=== PATIENT | male | born 1950 | race Caucasian/White ===

== ENCOUNTER 2023-01-24 18:28 | Emergency (ER) | payer SELFPAY ==
--- OUTSIDE RECORDS SUMMARY | 2023-01-24 18:31 | XMS REPORT | Continuity of Care Document ---
:1950 Author Organization [facility] t Address [address] [facility] [address] [place] [id number] Care Team Providers Name Role Phone NO, PCP Primary Care Physician Unavailable NINOSKA ROSE Attending Clinician Unavailable SUNIL CHANDRA Attending Clinician Unavailable May Patino DO Attending Clinician [phone] BETTE KELLY - Attending Clinician Unavailable NINOSKA ROSE Admitting Clinician Unavailable SUNIL CHANDRA Admitting Clinician Unavailable DO MAY PATINO Admitting Clinician Unavailable BETTE KELLY - Admitting Clinician Unavailable Payers Payer Name Policy Type Policy Number Effective Date Expiration Date S valentina DCB [facility] [id number] 2023 COMMITMENT 00:00:00 22 C [id number] Problems This patient has no known problems. Allergies, Adverse Reactions, Alerts Allergy Allergy Status Severity Reaction(s) Onset Inactive Treating Comm ents Source Name Type Date Date Clinician No known Miscella Active U Unknown [facility] Allergy 16:19: l s 17 ([facility] No known Miscella Active U Unknown [facility] All[facility] Allergy 16:19: l s 17 ([facility]) No known Miscella Active U Unknown [facility] Allergie Allergy 16:19: l s 17 ([facility] [facility]) No known Miscella Active U Unknown [facility] Allergie Allergy 16:19: l s 17 ([facility] [facility]) No known Miscella Active U Unknown [facility] Allergie Allergy 16:19: l s 17 ([place] [facility]) No known Miscella Active U Unknown [facility] drug neous 09-25 Hospita Allergie Allergy 16:19: l s 17 ([facility] nt) No Known NA Active [facility] 09-25 Hospita s 15:17: l 58 ([facility] nt) Social History Social Habit Start Date Stop Date Quantity Comments Source Sexual orientation Method [facility] History of Social 2022-10-26 2022-10-26 [facility] function 00:00:00 00:00:00 Sex Ass[birth year] [facility] 00:00:00 00:00:00 Smoking Status Start Date Stop Date Source Tobacco smoking consumption unknown [facility] Medications This patient has no known medications. Vital Signs Vital Name Observation Time Observation Value Comments Source Systolic blood 2022-10-28 03:31:00 145 mm[Hg[facility] pressure Diastolic blood 2022-10-28 03:31:00 81 mm[Hg] [facility] pressure Heart rate 2022-10-28 03:31:00 67 /min [facility] Body temperature 2022-10-28 03:31:00 36.44 Debra [facility] Respiratory rate 2022-10-28 03:31:00 20 /min [facility] Oxygen saturation in 2022-10-28 03:31:00 98 /min [facility] Arterial blood by Pulse oximetry Procedures Procedure Date / Time Performing Clinician Source Performed CT HEAD WO CONTRAST 2022-10-25 [facility]50[facility] 2022-10-24 22:15:00 May Patino [facility] RT-PCR [facility] URINE CULTURE 2022-10-24 22:14:00 May Patino [facility] URINALYSIS SCREEN AND 2022-10-24 22:14:00 Carey May [facility] MICROSCOPY, WITH REFLEX [place] TO CULTURE URINE DRUGS OF ABUSE 2022-10-24 22:14:00 May Patino [facility] SCREEN [place] CBC WITH PLATELET AND 2022-10-24 22:13:00 Carey May [facility] DIFFERENTIAL [place] COMPREHENSIVE METABOLIC 2022-10-24 22:13:00 May Patino [facility] PANEL [place] THYROID STIMULATING 2022-10-24 22:13:00 [facility] May [facility] HORMONE Harinder T4, FREE 2022-10-24 22:13:00 [facility] May [facility] CREATINE KINASE, TOTAL 2022-10-24 22:13[facility] Harinder ALCOHOL LEVEL, BLOOD 2022-10-24 22:13:00 [facility] Harinder ACETAMINOPHEN LEVEL 2022-10-24 22:13:00 [facility], [facility] Harinder SALICYLATE LEVEL 2022-10-24 22:13:00 [facility], [facility] Harinder ESTIMATED GFR 2022-10-24 22:13:00 [facility], [facility] ECG 12-LEAD 2022-10-24 21:26:37 [facility] ED PRELIMINARY 2022-10-24 20:59:44 [facility] Plan of Care Planned Activity Planned Date Details Comments Source Future Scheduled 2023-01-24 Screening for [facility] Test 18:27:45 malignant neoplasm of colon (procedure) [code = 042877058] Future Scheduled 2023-01-24 Screening for [facility] Test 18:27:45 malignant neoplasm of colon (procedure) [code = 136863678] Future Scheduled 2023-01-24 Screening for [facility] Test 18:27:45 malignant neoplasm of colon (procedure) [code = 474226008] Future Scheduled 2023-01-24 COVID-19 VACCINE (#1) [facility] Test 18:27:45 [code = COVID-19 VACCINE (#1)] Future Scheduled 2023-01-24 Hepatitis C screening [facility] Test 18:27:45 (procedure) [code = 227480682] Future Scheduled 2023-01-24 Screening for [facility] Test 18:27:45 malignant neoplasm of colon (procedure) [code = 662370811] Future Scheduled 2023-01-24 Screening for [facility] Test 18:27:45 malignant neoplasm of colon (procedure) [code = 281409335] Future Scheduled 2023-01-24 SHINGLES VACCINES (1 [facility] Test 18:27:45 of 2) [code = SHINGLES VACCINES (1 of 2)] Future Scheduled 2023-01-24 65+ [facility] Test 18:27:45 VACCINE (1 - PCV) [code = 65+ PNEUMOCOCCAL VACCINE (1 - PCV)] Future Scheduled 2023-01-24 INFLUENZA VACCINE (#1) [facility] Test 18:27:45 [code = INFLUENZA VACCINE (#1)] Encounters Start End Encounter Admission Attending Care Care Encounter Source Date/Time Date/Time Type Type Clinicians Facility Department ID 2023-01-22 2023-01-22 Outpatient [facility] [id number] Eligio 09:16:12 09:16:12 [id number] F Michael 2023-01-04 2023-01-21 Outpatient ROSE VASHAD [facility] [id number] [facility] 18:04:00 10:04:00 NINOSKA 2022-10-27 2022-11-19 [facility] [id number] 23:34:00 10:29:00 SUNIL 2022-10-24 2022-10-27 Emergency Carey, 1.2.840.1 [id number] [facility] 15:20:00 22:40:00 May [id number] [facility] 3.430.2.7 Hospit a .3.882180 l .8 2022-10-24 2022-10-27 [facility] [id number] [place] 00:00:00 00:00:00 MAY [address] 2022-09-25 2022-09-26 Emergency [facility] 2.16.840.1. [id number] 20:17:00 05:27:00 Department REGIS 763132.4.6. Patient [facility] [id number] Visit 2022-09-25 2022-09-26 Emergency 1 LETICIA MIGNONDESI ERS [id number] [facility] 15:17:00 00:27:00 DARRELLA Hospi ta l ([facility]) Results Test Description Test Time Test Comments Results Result [facility] e Comments CT Head Wo EXAMINATION: CT HEAD Meth odist Contrast 3 WO CONTRAST CLINICAL Hosp ital 01:55:42 HISTORY: Psychosis COMPARISON: None. TECHNIQUE: Noncontrast head CT performed using radiation dose reduction techniques. Technical factors are evaluated and adjusted to ensure appropriate moderation of exposure. Automated dose management technology is applied to adjust radiation exposure while achieving a diagnostic quality image. FINDINGS: No acute intracranial hemorrhage. Fisher-white matter differentiation is preserved. Mild vascular calcifications. No CT evidence of significant microvascular ischemic change. Old appearing right basal ganglia lacunar infarcts Midline structures are unremarkable. Mild parenchymal involution. Small mass is noted adjacent to the falx on the left and demonstrates partial calcification, measuring up to 1.6 cm in AP dimension. Favored to represent a small meningioma Calvarium is intact. No significant paranasal sinus mucosal inflammation. No significant amount of fluid within the mastoid air cells. Orbits are unremarkable. Round metallic foreign body is noted in the left nasal cavity measuring 5 mm in size. Right frontal region scalp lipoma measuring up to 3.3 cm in size IMPRESSION: No CT evidence of acute intracranial abnormality. Small metallic foreign body in the left nasal cavity [id number] Urine culture 2022-10-24 23:54:00 Test Item Value Reference Range Interpretation Comme nts Urine culture (test code = 3922047) SEE COMMENT [facility] [Presence] in Respiratory specimen by SHIV with probe [id number] 22:23:45 Test Item Value Reference Range Interpretation Comments SARS-CoV-2 (COVID-19) RNA Not detected [Presence] in Respiratory specimen by SHIV with probe detection (test code = 41394-9) Whether patient is employed in a Unknown healthcare setting (test code = 89836-9) Whether the patient has symptoms Unknown related to condition of interest (test code = 47564-8) Whether the patient was Unknown hospitalized for condition of interest (test code = 73342-9) Whether the patient was admitted Unknown to intensive care unit (ICU) for condition of interest (test code = 89741-9) Whether patient resides in a Unknown congregate care setting (test code = 39944-5) status (test code = Unknown 49299-8) Date and time of symptom onset Unknown (test code = 08871-5) [facility] Interpretation - Not an [id number] 20:59:44May Patino DO 10/28/2022 9:49 [facility] Preliminary Interpretation - Not an Order Performed by: May Patino DOAuthorized by: May Patino DO ECG reviewed by ED Physician in the absence of a tutoring manager: yes Interpretation: Interpretation: non-specific Rate: ECG rate: 65 ECG rate assessment: normal Rhythm: Rhythm: sinus rhythm Ectopy: Ectopy: none QRS: QRS axis: LeftConduction: Conduction: normal ST segments: ST segments: NormalT waves: T waves: non-specific and inverted Inverted: V1 and V2HEP C RNA QT BY [id number] 11:23:00 Test Item Value Reference Range Interpretation Comments HEPCQUAN (test 87672 IU/mL code = HEPCQUAN) HEPCLOG (test code 4.314 log10 TEST INFO RMATION: THE = HEPCLOG) IU/mL QUANTITATIVE RA NGE OF THIS ASSAY IS 1 5 IU/mL TO 100 HI LLION IU/mL TESTING PERFORMED AT [employer], [place] [id number] 18:23:00 Test Item Value Reference Range Interpretation Comments GLUCOSE (test code = URGLU) NEGATIVE MG/DL NEG-100 BILIRUBN (test code = URBILI) NEGATIVE NEGATIVE KETONE (test code = URKET) NEGATIVE MG/DL NEGATIVE BLOOD (test code = URBLD) NEGATIVE NEGATIVE UR PH (test code = URPH) 5.0 5.0-7.5 PROTEIN (test code = URPRO) NEGATIVE MG/DL NEGATIVE NITRITES (test code = URNIT) NEGATIVE NEGATIVE UROBILINGEN (test code = 1.0 EU/DL 0.2-1.0 URURO) LEUKOCYT (test code = URLEU) NEGATIVE NEGATIVE UA COLOR (test code = UA YELLOW YELLOW COLOR) CLARITY (test code = CLARITY) CLEAR CLEAR SP GRAV (test code = URSPGRAV) 1.025 1.000-1.025 UAMICRO (test code = UAMICRO) NO HEPATITIS C ANTIBODY [id number] 17:20:00 Test Item Value Reference Range Interpretation Comments SCRN HCV (test code REACTIVE NEGATIVE Hepatiti s C Antibody test = SCRN HCV) is for screenin g purposes only. All react riya will be confirmed by additional test ing. ER SCREEN FOR HIV 17:19:00 Test Item Value Reference Range Interpretation Comments HIV 1/2 AB (test NEGATIVE NEGATIVE This test i s used for code = SCRN HIV) SCREENING p urposes only. All reactive re sults are prelimenary and confirmation re sults will follow. LIVER [id number] 16:29:00 Test Item Value Reference Range Interpretation Comments TOTPROT (test code = TOTPROT) 8.1 G/DL 6.3-8.2 ALBUMIN (test code = ALBSERUM) 4.2 G/DL 3.5-5.0 BILITOT (test code = BILITOT) 0.5 MG/DL 0.2-1.3 BILIDIR (test code = BILIDIR) 0.1 MG/DL 0.0-0.4 AST (test code = AST) 90 U/L 15-46 H PHOSALK (test code = PHOSALK) 62 U/L 38-126 ALTV (test code = ALTV) 88 U/L 13-69 H [id number] 16:29:00 Test Item Value Reference Range Interpretation Comments LIPASE (test code = LIPA) 331 U/L 23-300 H BLOOD ALCOHOL (ETOH)2022-09-25 16:29:00 Test Item Value Reference Range Interpretation Comments ALCOHOL BLOOD LEVEL 22 MG/DL 0-10 H Results are to be used (test code = ALC BLD) for me dical purposes (treatment) onl y. Not intended for no n medical purpose s. [id number] 16:24:00 Test Item Value Reference Range Interpretation Comments WBC (test code = 4.2 K/UL 3.5-10.9 WBC) RBC (test code = 4.26 M/UL 4.3-5.7 L RBC) HGB (test code = 13.3 G/DL 13.0-17.9 HGB) HCT (test code = 41.4 % 38-52 HCT) MCV (test code = 97.2 FL 80-98 MCV) MCH (test code = 31.2 PG 28-32 MCH) MCHC (test code = 32.1 G/DL 32.5-36.5 L MCHC) RDW (test code = 14.4 % 11.5-14.5 RDW) PLT (test code = 195 K/UL 150-450 PLT) MPV (test code = 9.3 FL 7.4-10.4 MPV) MANDIFF (test code = NO MANDIFF) SCAN (test code = NO SCAN) NEUT% (test code = 31.1 % 40-75 L NEUT%) LYMPH% (test code = 49.0 % 24-44 H LYMPH%) MONO% (test code = 13.0 % 0-13 MONO%) EOS% (test code = 6.0 % 0-4 H EOS%) BASO % (test code = 0.7 % 0-2 BASO%) IG (test code = IG) 0 % 0-1 IG% (test code = 0.2 % 0-1 IG% = Metam yelocytes, IG%) Myelocytes, and Promyelocytes. (Immature neutr ophils not including " bands".) > 3% IG indic ates risk of sepsis NRBC% (test code = 0 /100 WBC NRBC%) ABS NEUT (test code 1.3 K/UL 1.2-7.2 = NEUT) CHEST 1 VIEW [id number] 16:19:00 [facility] 1950 Sex: M[address] [address]RAPODBSKWU IMAGING R EPORTPatient Name: MIN METZDOMINICDate of Service: [id number]: 72 Sex: M Order #: [id number]: QERDOB: 1950 X-Ray Number: [id number] Record Number: [id number] Hospital Number: [id number] Physician: ,Ordering Physician: DASH KOEHLER -HISTORY:Cough without feverEXAM:CHEST 1 VIEW PORTABLETwo AP upright portable chest images are submitted without previous comparisonstudies.Findings:Heart size appears normal.No abnormal mediastinal contour is seen.The lungs are well expanded with no evidence of acute opacity, pleural fluidor mediastinal shift.No lung mass or nodule is seen.Nopulmonary congestion or edema is seen.Impression:1. No evidence of active cardiopulmonary disease. 1618 CTLegally authenticated by MAYE DIAZ 2022-09-25 15:45:00ISTAT CHEM [id number] 15:55:00 Test Item Value Reference Range Interpretation Comments ISTATNA (test code = 144 MMOL/L 137-145 ISTATNA) ISTATK (test code = 4.2 MMOL/L 3.6-5.0 ISTATK) ISTATCL (test code = 106 MMOL/L 98-107 ISTATCL) ISTIONCA (test code = 1.16 MMOL/L 1.12-1.32 ISTIONCA) ISTCO2 (test code = 27 MMOL/L 22-30 ISTCO2) ISTATGLU (test code = 91 MG/DL 65-110 ISTATGLU) ISTATBUN (test code = 26.0 MG/DL 7.0-20.0 H ISTATBUN) ISTCREA (test code = 0.7 MG/DL 0.7-1.5 ISTCREA) ISTATHCT (test code = 44 %PCV 37.0-52.0 ISTATHCT) ISTATHGB (test code = 15.0 G/DL 12.0-18.0 Notifi ed Nurse/MD of ISTATHGB) results outside of Reference Range s ISTANGAP (test code = 17 MMOL/L Notifi ed Nurse/MD of ISTANGAP) results outside of Reference Range s Notes Date/Time Note Provider Source 2022-09-25 15:45:00 [id number]:45:00[facility] D[facility]YN VILLAVICENCIO [address] [address] DIAGNOSTIC IMAGING REPORT Patient Name: Maritza METZ of Service: [id number]: 72 Sex: M Order #: [id number] [facility] 1950 [facility] Number: [id number] Record Number: [id number] Hospital Number: [id number] Physician: ,Ordering Physician: DASH KOEHLER - HISTORY:Cough without feverEXAM:CHEST 1 VIEW PORTABLE Two AP upright portable chest images are submitted without previous comparisonstudies.Findings:Heart size appears normal.No abnormal mediastinal contour is seen.The lungs are well expanded with no evidence of acute opacity, pleural fluidor mediastinal shift.No lung mass or nodule is seen.No pulmonary congestion or edema is seen.Impression:1. No evidence of active cardiopulmonary disease. [address]18 CT Legally authenticated by MAYE DIAZ 2022-09-25 15:45:[id number], [id number]:45:[id number]:19:55
[2023-01-24 19:16] LABS: Absolute Lymphocytes (CBC) 2.1 K/uL (0.7-4.9); Hematocrit 38.1 % (39.6-49.0); Lymphocytes % 42.3 % (15.3-44.8); MCV 95.6 fL (80-100); MPV 7.4 fL (7.6-11.3); Platelets 220 thou/uL (152-406); RBC Red Blood Cell Count 3.98 M/uL (4.33-5.43)
[2023-01-24 19:27] LABS: Protime INR 1.15
[2023-01-24 19:30] LABS: ALT/SGPT 265 U/L (16-61); AST/SGOT 193 U/L (15-37); Albumin 3.1 g/dL (3.4-5.0); Alkaline Phosphatase 81 U/L (45-117); BUN Blood Urea Nitrogen 17 mg/dL (7-18); Bicarbonate 30 mEq/L (21-32); Bilirubin Direct 0.3 mg/dL (0-0.2); Bilirubin Indirect, Calculated 0.3 mg/dL (0.2-0.8); Bilirubin Total 0.6 mg/dL (0.2-1.0); Glomerular Filtration Rate 91 ml/min (=/>90); Glucose Level 88 mg/dL (74-106); Potassium 3.7 mEq/L (3.5-5.1); Protein, Total 7.8 g/dL (6.4-8.2); Sodium Level 135 mEq/L (136-145)
[2023-01-24] MEDS ORDERED: TDAP (DIPHTH,PERTUSS(ACELL),TET VAC) 0.5 ML VIAL IMVAC ONE (19:37)
[2023-01-24] MEDS ORDERED: THIAMINE 200 MG/2 ML INJ ONE (19:37)
[2023-01-24] MEDS ORDERED: LIDOCAINE 1% 20 ML MDV ONE (19:37)
[2023-01-24] MEDS ORDERED: NA CHLORIDE 0.9% 1,000 ML ONE (19:37)
--- NOTE | 2023-01-24 19:45 | RAD REPORT ---
EXAM DESCRIPTION: CT - Head C Spine Cap Wo Con - 01/24/2023 7:12 pm CLINICAL HISTORY: Head and neck injury with chest and abdominal pain status post fall TECHNIQUE: Computed axial tomography of head, neck, chest, abdomen and pelvis obtained. IV and oral contrast not requested. Coronal and sagittal reconstruction performed. All CT scans are performed using dose optimization technique as appropriate and may include automated exposure control or mA/KV adjustment according to patient size. COMPARISON: None FINDINGS: Left supraorbital laceration. An intracranial bleed is not seen. A 3 millimeter round metallic foreign body left nasal cavity 3.4 centimeter right scalp lipoma The ventricles are normal in caliber. An extra-axial fluid collection is not noted. A 16 millimeter partially calcified mass abuts the left aspect of the falx. No surrounding edema. Thi s likely represents a meningioma. Fluid within the sinuses/mastoids is not seen. A cervical fracture is not seen. No dislocation is noted. Mild posterior subluxation C3 on C4. Modera te spondylosis cervical spine The evaluation of mediastinum, sonido, vessels, solid organs and bowel are limited secondary to the lac k of contrast administration. A mediastinal hematoma is not noted. A pleural effusion is not seen. A lung contusion is not present. Old nonunited left clavicular fracture The liver,spleen, pancreas, adrenals,kidneys and bladder do not demonstrate an acute traumatic injury Mild anterior subluxation of L5 on S1. Spondylosis L5 IMPRESSION: No acute intracranial abnormality is seen. A cervical fracture is not visualized. If the patient continues to have symptoms to suggest intracran ial/spinal cord/ ligamentous pathology MRI would be recommended No acute traumatic abnormality involving the chest, abdomen or pelvis
[2023-01-24] MEDS ORDERED: LIDOCAINE 2% W/EPI 1:200,000 MPF 20 ML VIAL IM ONE (20:02)
[2023-01-24 21:28] LABS: Barbiturates NEGATIVE (NEGATIVE); Benzodiazepines NEGATIVE (NEGATIVE); Cocaine NEGATIVE (NEGATIVE); METHAMPHETAM NEGATIVE (NEGATIVE); Methadone NEGATIVE (NEGATIVE); Opiates NEGATIVE (NEGATIVE); Phencyclidine NEGATIVE (NEGATIVE); THC Cannibis NEGATIVE (NEGATIVE)
--- NOTE | 2023-01-24 23:42 | ER ---
Nurse's Notes [facility] Name: Rashid Esparza Age: 72 yrs Sex: Male : 1950 Arrival Date: 01/24/2023 Time: 18:28 Bed 3 Private MD: Diagnosis: Fall on same level, unspecified;Laceration without foreign body of other part of head;Alcohol abuse with intoxication;Essential (primary) hypertension Presentation: 01/24 18:30 Chief complaint: EMS states: pt left [facility] after 3 days, he has been iw drinking all day, drank 2 qts of vodka and beer today , has fallen multiple times , has a laceration to left eyebrow area, pt oriented X 3, no other injuries noted, does not know if he passed out. 18:30 Acuity: HANG 3 iw 18:32 Method Of Arrival: EMS: [facility] iw 18:32 Coronavirus screen: At this time, the client does not indicate any symptoms associated iw with coronavirus-19. Ebola Screen: Patient negative for fever greater than or equal to 101.5 degrees Fahrenheit, and additional compatible Ebola Virus Disease symptoms Patient denies exposure to infectious person. Patient denies travel to an Ebola-affected area in the 21 days before illness onset. No symptoms or risks identified at this time. Initial Sepsis Screen: Does the patient meet any 2 criteria? No. Patient's initial sepsis screen is negative. Does the patient have a suspected source of infection? No. Patient's initial sepsis screen is negative. Risk Assessment: Do you want to hurt yourself or someone else? Patient reports no desire to harm self or others. Onset of symptoms was January 24, 2023. 18:33 Acuity: HANG 2 iw Historical: - Allergies: 18:33 No Known Allergies; iw - Home Meds: 18:33 None [Active]; iw - PMHx: 18:33 None; iw - Immunization history:: Adult Immunizations Last tetanus immunization: unknown. - Social history:: Smoking status: Patient reports the use of cigarette tobacco products, smokes two packs cigarettes per day. Screenin:53 [facility] ED Fall Risk Assessment (Adult) Score/Fall Risk Level 3 or more points = High as6 Risk. Abuse screen: Denies threats or abuse. Denies injuries from another. Nutritional screening: No deficits noted. Tuberculosis screening: No symptoms or risk factors identified. Assessment: 19:51 General: Appears in no apparent distress. unkempt, Behavior is cooperative, Smells of as6 alcohol. General: appears intoxicated . Pain: Complains of pain in left eye. Neuro: Level of Consciousness is awake, alert, obeys commands, Oriented to person, place, time, situation. Cardiovascular: Capillary refill < 3 seconds Patient's skin is warm and dry. Respiratory: Respiratory effort is even, unlabored, Respiratory pattern is regular, symmetrical. Injury Description: Laceration sustained to left side of forehead is jagged, 2.6 to 7.5 cm long, bleeding moderately. 22:55 General: pt resting . as6 Vital Signs: 18:32 BP 114 / 77; Pulse 73; Resp 16; Temp 97.6; Pulse Ox 94% on R/A; Weight 79.38 kg; Height iw 6 ft. 3 in. ; 19:53 BP 143 / 93; Pulse 69; Resp 18 S; Pulse Ox 95% on R/A; as6 20:49 BP 136 / 80; Pulse 70; Resp 18 S; Pulse Ox 97% on R/A; as6 22:55 BP 133 / 78; Pulse 73; Resp 18 S; Pulse Ox 94% on R/A; as6 23:42 BP 105 / 72; Pulse 67; Resp 18 S; Pulse Ox 95% on R/A; as6 18:32 Body Mass Index 21.87 (79.38 kg, 190.5 cm) iw ED Course: 18:29 Patient arrived in ED. iw 18:31 Triage completed. iw 18:34 Arm band placed on. iw 18:56 Inserted saline lock: 18 gauge in right antecubital area, using aseptic technique. mb9 Blood collected. 19:00 Basic Metabolic Panel Sent. mb9 19:00 CBC with Diff Sent. mb9 19:00 ETOH Level Sent. mb9 19:00 Hepatic Function Sent. mb9 19:00 PT-INR Sent. mb9 19:00 Ptt, Activated Sent. mb9 19:00 Salicylate Sent. mb9 19:01 Cisco Kidd DO is Attending Physician. ms3 19:07 Herson Villegas, VISH is Primary Nurse. as6 19:13 CT Traumagram (Head C Spine CAP wo con) In Process Unspecified. EDMS 19:53 Placed in gown. Bed in low position. Call light in reach. Side rails up X2. as6 20:24 Assist provider with laceration repair on left side of forehead that was between 2.6 to as6 7.5 cm using sutures. Set up tray. Performed by Cisco Kidd DO Dressed with Patient tolerated well. 23:41 Juan Jackson DO is Referral Physician. ms3 23:47 Provided Education on: follow up. as6 23:47 IV discontinued, intact, bleeding controlled, No redness/swelling at site. Pressure as6 dressing applied. Administered Medications: 19:19 Not Given (Product Out of Stock): tetanus-diphtheria toxoidadult 0.5 ml IM once; jw7 Provide Vaccine Information Statement (VIS). 19:49 Drug: NS 0.9% IV 1000 ml IV at 1 bolus Per protocol; 1000 mL bolus Route: IV; Rate: 1 as6 bolus; Site: right antecubital; 23:38 Follow up: Response: No adverse reaction; IV Status: Completed infusion; IV Intake: as6 1000ml 19:49 Drug: Thiamine IV 100 mg IV at bolus once Route: IV; Rate: bolus; Site: right as6 antecubital; 23:38 Follow up: Response: No adverse reaction; IV Status: Completed infusion; IV Intake: 1ml as6 19:49 Drug: Boostrix Tdap IM 0.5 ml IM once; as a single dose Route: IM; Site: right deltoid; as6 23:37 Follow up: Response: No adverse reaction as6 20:07 Drug: Lidocaine-Epinephrine Infiltration -1%: (1:100,000) 10 ml 20 ml Infiltration as6 once; to bedside {Note: administered by provider .} Volume: 20 ml; Route: Infiltration; 23:38 Follow up: Response: No adverse reaction as6 Medication: 19:53 Vaccine Information Statement (VIS) provided today. Questions and/or concerns as6 addressed. VIS edition date: September 27, 2020. Intake: 23:38 IV: 1ml; Total: 1ml. as6 23:38 IV: 1000ml; Total: 1001ml. as6 Outcome: 23:41 Discharge ordered by . ms3 23:42 Condition: stable as6 23:47 Discharged to home ambulatory, as6 23:47 Discharge instructions given to patient, Instructed on discharge instructions, follow up and referral plans. wound care, Demonstrated understanding of instructions, follow-up care, wound care, 23:56 Patient left the ED. as6 Signatures: Dispatcher [employer] Donna Gutierrez, RN VISH iw Cisco Kidd DO DO ms3 Herson Villegas RN RN as6 Reyna Gibbs RN RN mb9 Cherry Callejas RN jw7 Corrections: (The following items were deleted from the chart) 18:33 18:32 BP 114 / ???; Pulse 73bpm; Resp 77bpm; Pulse Ox 94% RA; Temp 16F; 79.38 kg; iw Height 6 ft. 3 in.; BMI: 21.8; iw 18:33 18:32 BP 114 / ???; Pulse 73bpm; Resp 16bpm; Pulse Ox 94% RA; Temp 97.6F; 79.38 kg; iw Height 6 ft. 3 in.; BMI: 21.8; iw
--- NOTE | 2023-01-24 23:42 | EDPHYS ---
Physician Documentation [facility] Name: Rashid Esparza Age: 72 yrs Sex: Male : 1950 Arrival Date: 01/24/2023 Time: 18:28 Bed 3 Private MD: ED Physician Cisco Kidd HPI: 01/24 22:38 This 72 yrs old Male presents to ER via EMS with complaints of Fall Injury, Laceration ms3 To Head, ETOH Abuse. 22:38 72-year-old male with no past medical history presents to the emergency department ms3 status post fall. Patient states he drank 2 quarts of beer today. Patient denies pain. Patient denies nausea or vomiting. Patient denies taking blood thinners.. Historical: - Allergies: 18:33 No Known Allergies; iw - Home Meds: 18:33 None [Active]; iw - PMHx: 18:33 None; iw - Immunization history:: Adult Immunizations Last tetanus immunization: unknown. - Social history:: Smoking status: Patient reports the use of cigarette tobacco products, smokes two packs cigarettes per day. ROS: 22:38 Constitutional: Negative for fever, and chills. Neck: Negative for injury, pain, and ms3 swelling, Cardiovascular: Negative for chest pain, and palpitations. Respiratory: Negative for shortness of breath, cough, wheezing, and pleuritic chest pain, Abdomen/GI: Negative for abdominal pain, nausea, vomiting, diarrhea, and constipation, MS/Extremity: Negative for injury and deformity, 22:38 Skin: Positive for laceration(s), 22:38 All other systems are negative, Exam: 22:29 ECG was reviewed by the Attending Physician. ms3 22:38 Constitutional: This is a well developed, well nourished patient who is awake, alert, ms3 and in no acute distress. Neck: Trachea midline, no cervical lymphadenopathy. Supple, full range of motion without nuchal rigidity, or vertebral point tenderness. No Meningismus. Chest/axilla: Normal chest wall appearance and motion. Nontender with no deformity. Cardiovascular: Regular rate and rhythm with a normal S1 and S2. No gallops, murmurs, or rubs. Normal PMI, no JVD. No pulse deficits. Respiratory: Lungs have equal breath sounds bilaterally, clear to auscultation and percussion. No rales, rhonchi or wheezes noted. No increased work of breathing, no retractions or nasal flaring. 22:38 MS/ Extremity: Pulses equal, no cyanosis. Neurovascular intact. Full, normal range of motion. 22:38 Head/face: Noted is a laceration(s), that is jagged, 5 cm(s), Vital Signs: 18:32 BP 114 / 77; Pulse 73; Resp 16; Temp 97.6; Pulse Ox 94% on R/A; Weight 79.38 kg; Height iw 6 ft. 3 in. ; 19:53 BP 143 / 93; Pulse 69; Resp 18 S; Pulse Ox 95% on R/A; as6 20:49 BP 136 / 80; Pulse 70; Resp 18 S; Pulse Ox 97% on R/A; as6 22:55 BP 133 / 78; Pulse 73; Resp 18 S; Pulse Ox 94% on R/A; as6 23:42 BP 105 / 72; Pulse 67; Resp 18 S; Pulse Ox 95% on R/A; as6 18:32 Body Mass Index 21.87 (79.38 kg, 190.5 cm) iw Laceration: 22:38 Wound Repair of 5cm ( 2.0in ) subcutaneous laceration to left side of forehead. ms3 Irregularly shaped.. Distal neuro/vascular/tendon intact. Anesthesia: Local anesthetic administered with 5 mls of 2% Lidocaine with epi. Wound prep: Simple cleansing by nurse. Skin closed with 9 4-0 Prolene using simple sutures and sterile technique. Dressed with Bacitracin. Patient tolerated well. MDM: 19:27 Patient medically screened. ms3 22:38 Differential diagnosis: abrasion, closed head injury, contusion, laceration. Data ms3 reviewed: vital signs, nurses notes, lab test result(s), EKG, radiologic studies, and as a result, I will discharge patient. I considered the following discharge prescriptions or medication management in the emergency department Medications were administered in the Emergency Department. See MAR. Independent interpretation of the following test(s) in the Emergency Department EKG: See my EKG interpretation above CT Scan: My interpretation is CT scan of head without contrast images reviewed by me does not reveal ICH. Counseling: I had a detailed discussion with the patient and/or guardian regarding the historical points, exam findings, and any diagnostic results supporting the discharge/admit diagnosis, lab results, radiology results, the need for outpatient follow up, to return to the emergency department if symptoms worsen or persist or if there are any questions or concerns that arise at home. Special discussion: I discussed with the patient/guardian in detail that at this point there is no indication for admission to the hospital. It is understood, however, that if the symptoms persist or worsen the patient needs to return immediately for re-evaluation. ED course: Discussed labs, imaging with patient. Patient to follow-up Dr. Jackson in 7 to 10 days for suture removal. Patient understands and agrees with plan. All questions were answered. Return precautions discussed include worsening symptoms, or any other concerns. 23:48 ED course: Patient clinically sober at this time, ambulatory emergency department. ms3 Discussed with patient necessity to have sutures removed in 7 to 10 days. All questions were answered. Return precautions discussed include worsening symptoms, or any other concerns. On reevaluation patient is alert and oriented x4, no apparent distress, nontoxic-appearing, ambulatory number department, speaking full sentences. 01/24 18:42 Order name: Acetaminophen; Complete Time: 19:37 01/24 18:42 Order name: Basic Metabolic Panel; Complete Time: 19:37 01/24 18:42 Order name: CBC with Diff; Complete Time: 19:37 01/24 18:42 Order name: ETOH Level; Complete Time: 19:37 01/24 18:42 Order name: Hepatic Function; Complete Time: 19:37 01/24 18:42 Order name: PT-INR; Complete Time: 19:37 01/24 18:42 Order name: Ptt, Activated; Complete Time: 19:37 01/24 18:42 Order name: Salicylate; Complete Time: 19:49 01/24 18:42 Order name: Urine Drug Screen; Complete Time: 21:30 01/24 18:42 Order name: CT Traumagram (Head C Spine CAP wo con); Complete Time: 19:49 01/24 18:42 Order name: EKG; Complete Time: 18:43 01/24 18:42 Order name: EKG - Nurse/Tech; Complete Time: 19:49 01/24 18:42 Order name: IV Saline Lock; Complete Time: 19:00 01/24 18:42 Order name: Labs collected and sent; Complete Time: 19:00 01/24 18:45 Order name: Dressing - Wound; Complete Time: 19:49 [facility] 01/24 18:45 Order name: Gloves, Sterile; Complete Time: 19:49 [facility] 01/24 18:45 Order name: Prolene, Sutures; Complete Time: 19:49 [facility] 01/24 18:45 Order name: Setup Suture Tray; Complete Time: 19:49 [facility] EC:29 Rate is 70 beats/min. Rhythm is regular. QRS Orrum is Normal. W[place] interval is normal. QRS ms3 interval is normal. QT interval is normal. Clinical impression: Normal ECG. Interpreted by me. Reviewed by me. Administered Medications: 19:19 Not Given (Product Out of Stock): tetanus-diphtheria toxoidadult 0.5 ml IM once; jw7 Provide Vaccine Information Statement (VIS). 19:49 Drug: NS 0.9% IV 1000 ml IV at 1 bolus Per protocol; 1000 mL bolus Route: IV; Rate: 1 as6 bolus; Site: right antecubital; 23:38 Follow up: Response: No adverse reaction; IV Status: Completed infusion; IV Intake: as6 1000ml 19:49 Drug: Thiamine IV 100 mg IV at bolus once Route: IV; Rate: bolus; Site: right as6 antecubital; 23:38 Follow up: Response: No adverse reaction; IV Status: Completed infusion; IV Intake: 1ml as6 19:49 Drug: Boostrix Tdap IM 0.5 ml IM once; as a single dose Route: IM; Site: right deltoid; as6 23:37 Follow up: Response: No adverse reaction as6 20:07 Drug: Lidocaine-Epinephrine Infiltration -1%: (1:100,000) 10 ml 20 ml Infiltration as6 once; to bedside {Note: administered by provider .} Volume: 20 ml; Route: Infiltration; 23:38 Follow up: Response: No adverse reaction as6 Disposition Summary: 01/24/23 23:41 Discharge Ordered Notes: Location: Home ms3 Condition: Stable ms3 Diagnosis - Fall on same level, unspecified ms3 - Laceration without foreign body of other part of head ms3 - Alcohol abuse with intoxication ms3 - Essential (primary) hypertension ms3 Followup: ms3 - With: Juan Jackson DO - When: 7 - 10 days - Reason: Staple/Suture removal Discharge Instructions: - Discharge Summary Sheet ms3 - Hypertension, Adult ms3 - Facial Laceration ms3 - DASH Eating Plan ms3 - Alcohol Abuse and Dependence Information, Adult ms3 Forms: - Medication Reconciliation Form ms3 - Thank You Letter ms3 - Antibiotic Education ms3 - Prescription Opioid Use ms3 - Patient Portal Instructions ms3 - Leadership Thank You Letter ms3 Signatures: Dispatcher [employer] EDFidencio Steinberg MD MD cha Williams, Irene, RN RN Cisco Villeda DO DO ms3 Herson Villegas RN RN as6 Cherry Callejas, RN RN jw7 Corrections: (The following items were deleted from the chart) 18:42 18:42 Suicide Screening ([place]) ordered. silvino dubois
[2023-01-25 01:54] VITALS: TEMP 97.6
[2023-01-25 02:00] VITALS: BP 105/72; O2SAT 95
--- NOTE | 2023-01-26 13:33 | EKG ---
Test Date: 2023-01-24 Test Time: 19:39:08 Security Control Center Operator: MEASUREMENT RESULTS: Intervals: Rate: 70 NC: 174 QRSD: 98 QT: 416 QTc: 449 Laura: P: 48 NC: 174 QRS: -6 T: 57 INTERPRETIVE STATEMENTS: Normal sinus rhythm Normal ECG No previous ECG available for comparison Electronically Signed On 01-26-23 13:27:59 SCREEN PRINTING INSPECTOR by Franki Choudhary
== END 2023-01-24 23:56 | disposition home or self-care (01) ==
LOC: ER 18:28
PROC: 0HQ1XZZ Repair Face Skin, External Approach (ICD-10-PCS; principal; 2023-01-24)
DX: S01.81XA Laceration without foreign body of other part of head, initial encounter (principal); F10.129 Alcohol abuse with intoxication, unspecified; W18.30XA Fall on same level, unspecified, initial encounter; I10 Essential (primary) hypertension
CPT/HCPCS: 36415; 70450; 71250; 72125; 80048; 80076; 80143; 80179; 80307; 82077; 85025; 85610; 85730; 93005; 96365; 96366; 96372; 99285; J2001; J3411; J7030